=== PATIENT | male | born 1990 | race American Indian/Alaskan Native ===

== ENCOUNTER 2016-12-02 02:03 | Emergency (ER) | payer OTHER ==
[2016-12-02 02:15] VITALS: TEMP 98.5
--- NOTE | 2016-12-02 02:38 | ED PDOC ---
Arrival/HPI - General Chief Complaint: Upper Extremity Problem/Injury Time Seen by Provider: 12/02/16 02:23 Historian: Patient - History of Present Illness Narrative History of Present Illness (Text): 12/02/16 02:33 Conor Mascorro is a 26 year old male who presents to the Emergency department complaining of left hand swelling with associated discomfort status post injury tonight. Patient states he dropped a metal object on to his left hand while at work. Patient denies any decreased ROM, numbness/tingling/weakness to the extremity, or any other complaints. Symptom Onset: Gradual Symptom Course: Unchanged Activities at Onset: Light Context: Work Past Medical History - Provider Review Nursing Documentation Reviewed: Yes - Psychiatric Hx Substance Use: No - Anesthesia Hx Anesthesia: No Family/Social History - Physician Review Nursing Documentation Reviewed: Yes Family/Social History: Unknown Family HX Smoking Status: Never Smoked Hx Alcohol Use: No Hx Substance Use: No Allergies/Home Meds Allergies/Adverse Reactions: Allergies No Known Allergies Allergy (Verified 12/02/16 02:14) Home Medications: Home Meds Medication Instructions Recorded Confirmed No Known Home Med 12/02/16 12/02/16 Review of Systems - Physician Review All systems were reviewed & negative as marked: Yes - Review of Systems Constitutional: Normal. absent: Fevers Eyes: Normal ENT: Normal Respiratory: Normal. absent: SOB, Cough Cardiovascular: Normal. absent: Chest Pain Gastrointestinal: Normal. absent: Abdominal Pain, Diarrhea, Nausea, Vomiting Genitourinary Male: Normal. absent: Dysuria, Frequency, Hematuria, Urinary Output Changes Musculoskeletal: Other (+swelling/pain to left hand). absent: Back Pain, Neck Pain Skin: absent: Rash Neurological: Normal Endocrine: Normal Hemo/Lymphatic: Normal Psychiatric: Normal Physical Exam Vital Signs Reviewed: Yes Vital Signs Temp Pulse Resp BP Pulse Ox 12/02/16 02:11 98.5 F 68 17 141/78 97 Temperature: Afebrile Blood Pressure: Normal Pulse: Regular Respiratory Rate: Normal Appearance: Positive for: Well-Appearing, Non-Toxic, Comfortable Pain Distress: None Mental Status: Positive for: Alert and Oriented X 3 - Systems Exam Head: Present: Atraumatic, Normocephalic Pupils: Present: PERRL Extroacular Muscles: Present: EOMI Conjunctiva: Present: Normal Mouth: Present: Moist Mucous Membranes Upper Extremity: Present: Swelling (Swelling to dorsum of left hand). No: Cyanosis, Edema Lower Extremity: Present: Normal Inspection. No: Edema Neurological: Present: GCS=15, CN II-XII Intact, Speech Normal Skin: Present: Warm, Dry, Normal Color. No: Rashes Psychiatric: Present: Alert, Oriented x 3, Normal Insight, Normal Concentration Medical Decision Making ED Course and Treatment: 12/02/16 02:33 Impression: 26 year old male complaining of swelling and discomfort to the left hand s/p injury tonight. Differential Diagnosis included but are not limited to: contusion vs. sprain vs. fracture Plan: -- XR Left Hand -- Motrin -- Reassess and disposition Progress Notes: 12/02/16 03:40 Reviewed radiology, XR Left Hand shows no acute processes. On reevaluation the patient feels better and is in no acute distress. I have discussed the results and plan with the patient, who expresses understanding. Patient given the opportunity to ask question, all questions were answered and there is agreement with the plan to discharge the patient home. Patient is stable for discharge. Patient was instructed to follow up with physician/clinic in 1-2 days or return if symptoms persist/worsen or new concerning symptoms arise. - RAD Interpretation Radiology Orders: 12/02/16 02:32 HAND LEFT 3 VIEWS ROUTINE [RAD] Stat - Medication Orders Current Medication Orders: Discontinued Medications Ibuprofen (Motrin Tab) 800 mg PO STAT STA Stop: 12/02/16 02:34 Last Admin: 12/02/16 02:49 Dose: Not Given Non-Admin Reason: Patient Refused - Scribe Statement The provider has reviewed the documentation as recorded by the Yovana Mendez Provider Scribe Attestation: All medical record entries made by the Scribe were at my direction and personally dictated by me. I have reviewed the chart and agree that the record accurately reflects my personal performance of the history, physical exam, medical decision making, and the department course for this patient. I have also personally directed, reviewed, and agree with the discharge instructions and disposition. Disposition/Present on Arrival - Present on Arrival Any Indicators Present on Arrival: No History of DVT/PE: No History of Uncontrolled Diabetes: No Urinary Catheter: No History of Decub. Ulcer: No History Surgical Site Infection Following: None - Disposition Have Diagnosis and Disposition been Completed?: Yes Diagnosis: Hand contusion Disposition: HOME/ ROUTINE Disposition Time: 03:45 Patient Plan: Discharge Patient Problems: Current Active Problems Problem Status Onset Hand contusion Acute Condition: GOOD Discharge Instructions (ExitCare): Contusion in Adults (ED) Additional Instructions: Apply cold compresses to the area to reduce swelling/advil as directed/follow up with your doctor Forms: [employer] (Monegasque)
[2016-12-02 03:52] VITALS: BP 139/82; PULSE 76; RESP 18; O2SAT 99
--- NOTE | 2016-12-02 08:52 | RAD ---
PROCEDURE: Left Hand Radiographs. HISTORY: injury COMPARISON: None. FINDINGS: BONES: Normal. No fracture. JOINTS: Normal. No osteoarthritic changes. SOFT TISSUES: Normal. OTHER FINDINGS: None. IMPRESSION: Normal left hand radiographs.
== END 2016-12-02 03:52 | disposition home or self-care (01) ==
LOC: ED 02:03
DX: S60.222A Contusion of left hand, initial encounter (principal); W20.8XXA Other cause of strike by thrown, projected or falling object, initial encounter; Y93.89 Activity, other specified; Y92.89 Other specified places as the place of occurrence of the external cause; Y99.0 Civilian activity done for income or pay

== ENCOUNTER 2017-03-27 16:48 | Emergency (ER) | payer MEDICAID ==
[2017-03-27 17:01] VITALS: BMI 28.1
[2017-03-27 17:11] VITALS: RESP 18; TEMP 98; O2SAT 96
--- NOTE | 2017-03-27 18:10 | ED PDOC ---
Arrival/HPI - General Chief Complaint: Allergic Reaction Time Seen by Provider: 03/27/17 17:00 - History of Present Illness Narrative History of Present Illness (Text): 03/27/17 18:10 Pt is a 26 yo M c/o mouth ulcers x 7 days after recovering from URI. Pt was seen at another medical center yesterday and was given a Rapid Strep which was negative and discharged with Lidocaine mouth rinse. Pt complains that the rinse is not working and reports worsening pain and ulceration. pt reports difficulty in eating and speaking; denies fever, but had some chills in the past, no sob, cp or OJEDA. Symptom Onset: Gradual Symptom Course: Unchanged, Worsening Quality: Aching, Burning Severity Level: Moderate Activities at Onset: Rest, Eating, Sleeping Context: Sitting, Standing, Walking Past Medical History - Provider Review Nursing Documentation Reviewed: Yes - Travel History Have you recently traveled outside [place] w/in the past 3 mons?: No - Past History Past History: No Previous - Infectious Disease Hx of Infectious Diseases: None - Cardiac Hx Cardiac Disorders: No - Pulmonary Hx Respiratory Disorders: No - Neurological Hx Neurological Disorder: No - HEENT Hx HEENT Disorder: No - Renal Hx Renal Disorder: No - Endocrine/Metabolic Hx Endocrine Disorders: No - Hematological/Oncological Hx Blood Disorders: No - Integumentary Hx Dermatological Disorder: Yes Other/Comment: aphthous ulcers - Musculoskeletal/Rheumatological Hx Musculoskeletal Disorders: No - Gastrointestinal Hx Gastrointestinal Disorders: No - Genitourinary/Gynecological Hx Genitourinary Disorders: No - Psychiatric Hx Psychophysiologic Disorder: No Hx Substance Use: No - Surgical History Hx Abdominal Aortic Aneurysm Repair: No - Anesthesia Hx Anesthesia: No Family/Social History Family/Social History: No Known Family HX Smoking Status: Never Smoked Hx Alcohol Use: No Hx Substance Use: No Allergies/Home Meds Allergies/Adverse Reactions: Allergies No Known Allergies Allergy (Verified 12/02/16 02:14) Physical Exam Vital Signs Temp Pulse Resp BP Pulse Ox 03/27/17 18:42 68 18 121/71 96 03/27/17 17:05 98.0 F 71 18 123/79 96 Medical Decision Making ED Course and Treatment: 03/27/17 18:27 Pt is a 26 yo M c/o mouth ulcers x 7 days after recovering from URI. Pt was seen at another medical center yesterday and was given a Rapid Strep which was negative and discharged with Lidocaine mouth rinse. Pt complains that the rinse is not working and reports worsening pain and ulceration. Impression: On PE, significant mouth ulcers around the mouth, lips, buccal area and pharynx Plan: throat cx to r/o bacterial or fungal infection Rx of Carafate solution given to promote healing of ulcers Advised on proper medication use and instructed him to promptly return to the ER if symptoms worsen or has difficulty breathing or swallowing. Also advised f/ u with PMD after Carafate treatment x 5 days. Will notify pt of throat cx report. - PA / QUALITY REVIEWER / Resident Statement MD/DO has reviewed & agrees with the documentation as recorded. Disposition/Present on Arrival - Present on Arrival Any Indicators Present on Arrival: Yes History of DVT/PE: No History of Uncontrolled Diabetes: No Urinary Catheter: No History of Decub. Ulcer: No History Surgical Site Infection Following: None - Disposition Have Diagnosis and Disposition been Completed?: Yes Diagnosis: Aphthous stomatitis Disposition: HOME/ ROUTINE Disposition Time: 18:29 Patient Plan: Discharge Condition: GOOD Discharge Instructions (ExitCare): Sucralfate (By mouth), Canker Sores (ED) Additional Instructions: Dear Patient, You have been diagnosed with aphthous stomatitis (canker sores or the mouth) that respond best with the use of Lidocaine mouth rinse, as you were previously given, tylenol or ibuprofen for pain, and Carafate that will assist with healing the sores. If you experience severe fever, pain, chest pain or shortness of breath of any other alarming symptoms, return to the emergency davy immediately. Please follow up with your Primary Doctor in about 5 days. All the best in your recovery. Prescriptions: Sucralfate [Carafate] 1 gm PO Q6 5 Days #1 bottle Referrals: Hu Dunne, [Primary Care Provider] - Follow up with primary Forms: [employer] (Polish)
[2017-03-27 18:42] VITALS: BP 121/71; PULSE 68
== END 2017-03-27 19:10 | disposition home or self-care (01) ==
LOC: ED 16:48
DX: K12.0 Recurrent oral aphthae (principal)